=== PATIENT | female | born 1945 | race Caucasian/White ===

== ENCOUNTER 2020-11-11 09:54 | Outpatient (REF) | payer MEDICARE, OTHER, SELFPAY ==
--- NOTE | ~2020-11-11 | MM_ITS ---
EXAMINATION: MM SCREENING DIGITAL BREAST TOMOSYNTHESIS, BILATERAL CLINICAL INFORMATION: Screening. Asymptomatic. The lifetime risk of breast cancer based on the Tyrer-Cuzick Model is 3%. COMPARISON: Mammography: 05/30/2018, 03/18/2017, 08/01/2016, 01/12/2016, 12/22/2015, 04/30/2013; ultrasound right breast 08/01/2016, 01/12/2016. TECHNIQUE: Digital breast tomosynthesis is performed in both the craniocaudal and mediolateral oblique views along with computer-aided detection (CAD). Synthesized 2D images are generated from the tomosynthesis. FINDINGS: There are scattered areas of fibroglandular density (ACR BI-RADS breast composition Category b). The known cyst mid upper outer right breast has regressed and no longer clearly visualized. The left breast has a 1.1 x 1.4 cm nodule central 3:00 position mid depth, increased in size from prior exams. Margins are smooth, partially obscured. This most likely represents a cyst and will be further characterize with targeted ultrasound. The remainder of the bilateral breasts show no significant changes from prior studies. There is no architectural abnormality. A few scattered punctate round calcifications are present. The axilla and skin contours are unremarkable. MM/MM tomosynthesis screening BI IMPRESSION: 1. Left: Nodule central 3:00 position mid depth 1.1 x 1.4 cm, possibly a cyst. 2. Right: No mammographic evidence of malignancy. ASSESSMENT: BI-RADS 0: Incomplete - Need Additional Imaging Evaluation RECOMMENDATION: 1. Targeted ultrasound left breast. 2. Radiology department staff will contact the patient for additional imaging. This patient's information was entered into a reminder system with a target due date for their next mammogram.
== END 2020-11-11 09:55 | disposition home or self-care (01) ==
LOC: HO.MAMMO 09:54
PROVIDERS: Visit Provider Nurse Practitioner Community Health
DX: Z12.31 Encounter for screening mammogram for malignant neoplasm of breast (principal)
CPT/HCPCS: 77063; 77067

== ENCOUNTER 2021-01-04 12:31 | Outpatient (REF) | payer MEDICARE, OTHER, SELFPAY ==
--- NOTE | ~2021-01-04 | US_ITS ---
EXAMINATION: US DIAGNOSTIC ULTRASOUND BREAST, LEFT CLINICAL INFORMATION: Recall from screening for nodule central 3:00 left breast increased in size from prior studies, suspected cyst. COMPARISON: Mammography 11/11/2020, 05/30/2018, 03/18/2017. TECHNIQUE: Ultrasound left breast is targeted to the outer quadrants. Grayscale imaging and color Doppler are performed without and with harmonics. At time of imaging, patient also noted left breast pain and ultrasound extended from the initial area of recall. Patient is able to point to the areas of symptoms at time of imaging. FINDINGS: The nodule central 3:00 left breast mid depth corresponds to a simple cyst measuring 1.3 x 1.2 x 0.7 cm. Margins are circumscribed. There is no solid component. There is mild increased through-transmission of sound at real-time imaging. There is no associated color flow. There is no focal suspicious finding. There is no solid mass, architectural abnormality, duct ectasia, or edema in the soft tissue planes. Results are discussed with the patient and her daughter at time of visit. US/US breast LT limited IMPRESSION: 1. Cyst central left breast 1.3 cm corresponding to finding on mammography. 2. No focal inflammatory changes. ASSESSMENT: BI-RADS 2: Benign RECOMMENDATION: 1. Patient's left breast pain may be be managed based on the clinical impression. 2. Otherwise, routine annual screening mammography. This patient's information was entered into a reminder system with a target due date for their next mammogram.
== END 2021-01-04 12:32 | disposition home or self-care (01) ==
LOC: HO.MAMMO 12:31
PROVIDERS: Visit Provider Nurse Practitioner Community Health
DX: R92.8 Other abnormal and inconclusive findings on diagnostic imaging of breast (principal)
CPT/HCPCS: 76642

== ENCOUNTER 2022-11-08 10:49 | Outpatient (REF) | payer MEDICARE, OTHER, SELFPAY ==
--- NOTE | ~2022-11-08 | MM_ITS ---
EXAMINATION: MM DIAGNOSTIC DIGITAL BREAST TOMOSYNTHESIS, BILATERAL US BREAST LIMITED, LEFT MAMMOGRAPHY: CLINICAL INFORMATION: Pain in the 1-5 o'clock region of the left breast COMPARISON: Mammography: This study is compared with prior mammograms dating back to 2017. TECHNIQUE: Digital breast tomosynthesis is performed in both the craniocaudal and mediolateral oblique views along with computer-aided detection (CAD). Synthesized 2D images are generated from the tomosynthesis. FINDINGS: There are scattered areas of fibroglandular density (ACR BI-RADS breast composition Category b). There are no significant masses, abnormal calcifications, or other abnormalities in either breast. In the lateral aspect of the left breast, the area of patient's pain, there are no mammographic abnormalities. ULTRASOUND: TECHNIQUE: Targeted sonographic evaluation was performed using a high frequency linear transducer. Selected archived documentation. FINDINGS: LEFT BREAST: Sonography of the 1-5 o'clock region of the left breast, the area of patient's pain, was performed. There are no abnormalities in this region. MM/MM tomosynthesis diagnostic BI IMPRESSION: No mammographic signs of malignancy in either breast. No mammographic or sonographic correlates related to the area of the patient's pain. Clinical follow-up is advised. OVERALL ASSESSMENT: Mammography: BI-RADS 1 - Negative Ultrasound: BI-RADS 1 - Negative RECOMMENDATION: 1 year F/U This follow-up refers to the recommendation for annual screening mammogram. Clinical follow-up is advised for the patient's pain. Results were provided to the patient at time of visit by the technologist. This patient's information was entered into a reminder system with a target due date for their next mammogram.
== END 2022-11-08 10:50 | disposition home or self-care (01) ==
LOC: HO.MAMMO 10:49
PROVIDERS: PCP Nurse Practitioner Community Health; Visit Provider Nurse Practitioner Community Health
DX: N64.4 Mastodynia (principal)
CPT/HCPCS: 76642; 77062; 77066

== ENCOUNTER → 2022-11-08 11:00 | Outpatient (BNV) | payer MEDICARE, MEDICAID, SELFPAY | PROVIDERS: PCP Nurse Practitioner Community Health; Visit Provider Radiology Diagnostic Radiology | DX: N64.4 Mastodynia (principal) | CPT/HCPCS: 76642; 77062; 77066; G0279 ==